=== PATIENT | female | born 1970 | race Caucasian/White ===

== ENCOUNTER 2018-09-13 23:04 | Emergency (ER) | payer BC ==
[~2018-09-13] VITALS: Ht 170.2 cm; Wt 79.5 kg
[2018-09-13] MEDS ORDERED: RANI1SYP PO (23:17)
[2018-09-14] MEDS ORDERED: GI COCKTAIL 50ML BTL(HYOSCYAMINE/MAALOX/LIDOCAINE VISCOUS)(1:3:1) PO ONE (00:30)
[2018-09-14] MEDS ORDERED: LIDO1SOL8 PO (01:19)
[2018-09-14 01:26] VITALS: BP 126/78
== END 2018-09-14 01:25 | disposition home or self-care (01) ==
LOC: M ED 23:04
DX: S10.15XA Superficial foreign body of throat, initial encounter (principal); R13.10 Dysphagia, unspecified; K21.9 Gastro-esophageal reflux disease without esophagitis; G51.0 Bell's palsy; Z87.891 Personal history of nicotine dependence; Z79.899 Other long term (current) drug therapy